=== PATIENT | female | born 1950 | race Caucasian/White ===

== ENCOUNTER 2016-08-30 10:00 | Inpatient (IN) | payer MEDICARE, OTHER ==
[~2016-08-30] VITALS: Ht 157.5 cm; Wt 73.8 kg
--- NOTE | ~2016-08-30 | DS ---
PATIENT'S NAME: CHARIS KUMAR [facility] AGE: 66 Y [address] ROOM: [place] [address] LOCATION: G3N ADMIT DATE: 09/13/2016 Discharge Summary DISCHARGE DATE: 09/15/2016 FAMILY PHYSICIAN: Chris Londono MD ATTENDING PHYSICIAN: Shukri Gutierrez PRIMARY DIAGNOSIS: Degenerative joint disease of the left knee. SECONDARY DIAGNOSES: 1. Hypertension. 2. Hyperlipidemia. 3. Osteopenia. 4. Peptic ulcer disease. 5. Vitamin D deficiency. PROCEDURE PERFORMED: Left total knee arthroplasty. HISTORY: The patient is a 66-year-old female, who presents with advanced left knee degenerative joint disease and associated severely compromised activities of daily living. The patient has decided to proceed with total knee arthroplasty after having been thoroughly counseled regarding the risks, benefits, limitations, and alternatives. Please refer to the outpatient clinic notes and admission history and physical for this patient. HOSPITAL COURSE: The patient underwent a left total knee arthroplasty on 09/13/2016 without complications. Spinal anesthesia plus adductor canal block plus periarticular local anesthesia was utilized. The patient received 24 hours of perioperative prophylactic antibiotics and remained hemodynamically stable, neurovascularly intact throughout the entire hospital course. The postoperative prophylactic deep venous thrombosis prophylaxis consisted of Xarelto, early mobilization and pneumatic compression devices. Daily physical therapy for gait training, transfer training range of motion and quadriceps isometric exercises were received. The patient progressed well in physical therapy. On the date of discharge, 09/15/2016, the incision at the knee was healing well and showed no signs of infection. DISPOSITION: Home. DISCHARGE ACTIVITY: The patient is to bear weight as tolerated with range of motion and quadriceps isometric exercises as instructed. The operative extremity is to be elevated at least 90% of the day. There is to be sterile 4x4 gauze dressings to the incision daily. Dr. Gutierrez is to be notified immediately if there is any increased pain, fevers, chills, erythema, or drainage. PATIENT'S NAME: CHARIS KUMAR [facility] AGE: 66 Y [address] ROOM: [place] [address] LOCATION: G3N ADMIT DATE: 09/13/2016 Discharge Summary DISCHARGE DATE: 09/15/2016 FAMILY PHYSICIAN: Chris Londono MD ATTENDING PHYSICIAN: Shukri Gutierrez DISCHARGE MEDICATIONS: 1. Xarelto 10 mg 1 tablet p.o. daily for 12 days for postoperative DVT prophylaxis. 2. Oxycodone 5 mg 1 to 2 tablets p.o. every 4 hours p.r.n. for pain. 3. Diazepam 5 mg 1/2 to 1 tablet p.o. every 6 hours p.r.n. for muscle spasms. 4. Gabapentin 300 mg 1 tablet p.o. every night at bedtime for 7 days for pain. She has been instructed to continue all her other preadmission medications as instructed by her internal medicine doctor. FOLLOWUP: Followup appointment is to be with Dr. Gutierrez's office on 09/20/2016 for her initial postoperative evaluation with x-rays of her left knee and suture removal at that time. DANTE CARROLL PA-C FOR MD PB MUNOZ/sally /[id number] d: 09/20/16 0549 t: 10/08/16 1202, DISCHARGE SUMMARY
--- NOTE | ~2016-08-30 | OR ---
PATIENT'S NAME: STAYC JOHNS [facility] AGE: 66 Y [address] ROOM: [place] [address] LOCATION: [facility] ADMIT DATE: 09/13/2016 OR/Procedure Report DISCHARGE DATE: FAMILY PHYSICIAN: Chris Londono MD ATTENDING PHYSICIAN: BAILEY MALIK SURGEON: Bailey Malik MD HUMAN RESOURCE MANAGEMENT INSTRUCTOR: Jose Card CST/METAL HANGING SUPERVISOR, and Bailey Landrum. DATE OF PROCEDURE: 09/13/2016 PRE-OP DIAGNOSIS: Degenerative joint disease left knee. POST-OP DIAGNOSIS: Degenerative joint disease left knee. OPERATION: Left total knee arthroplasty with computer navigation. ANESTHESIA: Spinal anesthesia plus adductor canal block plus periarticular local anesthesia (ropivacaine with epinephrine and Toradol). ESTIMATED BLOOD LOSS: Less than 20 mL. DRAIN: None. SPECIMEN: None. COMPLICATIONS: None. IMPLANT SYSTEM: [employer] Triathlon Size 3 left posterior stabilized femoral component. Size 2 universal modular tibial baseplate. 9 mm posterior stabilized size 2 X3 tibial polyethylene insert. 29 mm oval X3 patella component (triple pegged). INDICATIONS FOR SURGERY: Charis Kumar is a 66-year-old female who presents with advanced left knee degenerative joint disease and associated severely compromised activities of daily living. The patient has decided to proceed with knee replacement after having been thoroughly counseled regarding the associated risks, benefits, and limitations. We have specifically reviewed the risks and implications of infection, deep venous thrombosis, pulmonary embolism, mortality, neurovascular complications, blood transfusion (and associated potential for disease transmission or transfusion reaction), stiffness, instability, mechanical deterioration of the components (due to wear and or loosening), and the potential need for revision. We have also emphasized the importance of active involvement and compliance with post- operative physical therapy as a means of optimizing range of motion and PATIENT'S NAME: STACY JOHNS [facility] AGE: 66 Y [address] ROOM: [place] [address] LOCATION: [facility] ADMIT DATE: 09/13/2016 OR/Procedure Report DISCHARGE DATE: FAMILY PHYSICIAN: Chris Londono MD ATTENDING PHYSICIAN: BAILEY MALIK functional recovery. Informed consent has been granted. DESCRIPTION OF PROCEDURE: The patient was positioned supine after administration of anesthesia and prophylactic antibiotics. A well-padded pneumatic tourniquet was placed around the left proximal thigh, and the left lower extremity was prepped and draped with vigilant sterile technique. The patient's name as well as the intended operative side and procedure were confirmed with a verbal time-out involving myself, the circulating nurse, the scrub nurse, and the anesthesiologist. Examination under anesthesia demonstrated a large effusion. There were no active skin lesions or masses. There was no erythema. There was no abnormal warmth. Range of motion under anesthesia was from full extension to 135 degrees of flexion. There was no ligamentous insufficiency. The left lower extremity was elevated and exsanguinated with an Esmarch wrap, and the pneumatic tourniquet was inflated to 300mmHg. The knee was approached through a longitudinal midline incision. A medial parapatellar arthrotomy was performed and the patella was everted. Examination of the joint space demonstrated a large amount of benign-appearing translucent synovial fluid. There was mild generalized nonproliferative synovitis. There were no loose bodies. The cruciate ligaments were intact. There was a 1 cm diameter region of moderate grade 3 chondromalacia at the lateral facet of the patella. There was an 8 x 12 mm region of full-thickness articular cartilage loss at the medial half of the femoral trochlea. There was a small osteophyte at the medial margin of the femoral trochlea. There were small osteophytes at the medial femoral condyle and medial tibial plateau. There was a very small osteophyte at the lateral femoral condyle. There was intermixed grade 3 and grade 4 articular cartilage degeneration involving 80% of the medial femoral condyle. There was a 1 cm diameter region of full-thickness articular cartilage loss at the medial margin of the medial tibial plateau, and there was extensive surrounding grade 3 chondromalacia. There were grade 2 degenerative changes at the medial half of the lateral tibial plateau. There was no significant meniscal pathology. Remnants of the menisci and cruciate ligaments were excised. The Dot VN navigation femoral tracker was pinned in place at the distal aspect of the femoral trochlea. Absence of motion between the femur and the tracking device was confirmed manually and visually. Femoral osseous landmarks were obtained in order to calibrate the computer navigation system. Landmarks included the center of rotation of the ipsilateral hip, the center-point of the distal femur, the femoral AP axis, 57 points on the medial femoral condyle articular surface, and 57 points on the lateral femoral condyle articular surface. The ZettaCore computer navigation system was subsequently utilized PATIENT'S NAME: CHARIS [facility] AGE: 66 Y [address] ROOM: [id number] [place] [id number] LOCATION: [facility] ADMIT DATE: 09/13/2016 OR/Procedure Report DISCHARGE DATE: FAMILY PHYSICIAN: Chris Londono MD ATTENDING PHYSICIAN: BAILEY MALIK to position the distal femoral resection block such that the distal femoral resection was performed perfectly perpendicular to the femoral mechanical axis. The distal femoral resection was performed with a AptDeco oscillating saw. The ZettaCore computer navigation tibial tracker was pinned in place at the anterior aspect of the tibial plateau. Absence of motion between the tibia and the tracking device was confirmed manually and visually. Tibial osseous landmarks were obtained in order to calibrate the computer navigation system. Landmarks included the center-point of the tibial plateau, the AP tibial axis, 57 points on the medial tibial plateau articular surface, 57 points on the lateral tibial plateau articular surface, the medial malleolus, and the lateral malleolus. The ZettaCore computer navigation system was subsequently utilized to position the proximal tibial resection block such that the proximal tibial resection was performed perfectly perpendicular to the tibial mechanical axis. The proximal tibial resection was performed with a [employer] Precision oscillating saw. Perpendicularity of the tibial resection with respect to the tibial shaft axis was reconfirmed by inserting a spacer- block attached to an extramedullary guide sheridan. External rotation of the anterior and posterior femoral resections was set parallel to the epicondylar axis and carefully adjusted in order to create a rectangular flexion gap. The box resection was performed with a reciprocating saw. Anterior and posterior chamfer resections were performed with the oscillating saw. Posterior condyle osteophytes were excised with an osteotome. All other osteophytes were excised with a rongeur. Resection of all remnants of the menisci was reconfirmed. Flexion and extension gaps were confirmed to be symmetric and well balanced with a spacer-block technique. The patella resection was performed with an oscillating saw such that the composite thickness of the reconstructed patella was equivalent to the thickness of the [place] patella. Patella tracking was confirmed to be optimal. A lateral retinacular release was required in order to optimize patella tracking. All trial components were removed and all prepared osseous surfaces were thoroughly irrigated with pulsatile saline lavage and dried prior to cementing all three components in a single stage using Carmen Simplex cement containing pre-mixed tobramycin. All extruded excess cement was removed. The entire joint space was thoroughly inspected and thoroughly irrigated with bacteriostatic pulsatile saline lavage to assure that there was no residual debris of any sort. Final range of motion was from full extension (with no passive hyperextension) to 130 degrees of flexion. Patella tracking was reconfirmed to be optimal. PATIENT'S NAME: CHARIS KUMAR [facility] AGE: 66 Y [address] ROOM: [address] [address] LOCATION: [facility] ADMIT DATE: 09/13/2016 OR/Procedure Report DISCHARGE DATE: FAMILY PHYSICIAN: Chris Londono MD ATTENDING PHYSICIAN: BAILEY MALIK There was very good anteroposterior stability at 90 degrees of flexion. There was less than 1 mm of medial lift-off to valgus stress in full extension. There was less than 1 mm of lateral lift-off to varus stress in full extension. The arthrotomy was closed with multiple simple and [id number] interrupted #1 Vicryl. Subcutaneous tissues were thoroughly re-irrigated with bacteriostatic pulsatile saline lavage. Subcutaneous tissues were re- approximated with simple buried interrupted #0 Vicryl sutures. The skin was closed with simple buried interrupted 2-0 Vicryl sutures followed by surgical nara. The dressing consisted of Xeroform gauze, 4x4 gauze, ABD pads and two 6-inch Armen Wraps. There were no intra-operative complications. MD PAULIE MUNOZ/sally /[id number] d: 09/14/16 1325 t: 09/17/16 1006, OPERATIVE SUMMARY
[2016-08-30] MEDS ORDERED: CATAPRES0.1 MG PO (10:02)
[2016-08-30] MEDS ORDERED: ALLOPURINOL300 MG PO (10:02)
[2016-08-30] MEDS ORDERED: AMLODIPINE BESYL5 MG PO (10:02)
[2016-08-30] MEDS ORDERED: VOLTAREN 1% GE100 GM TOP (10:03)
[2016-08-30] MEDS ORDERED: PRILOSEC20 MG PO (10:04)
[2016-08-30] MEDS ORDERED: VALSARTAN-HCTZ1 EAC2 PO (10:04)
[2016-08-30] MEDS ORDERED: HYDROCHLOROTH12.5 MG PO (10:04)
[2016-08-30] MEDS ORDERED: OMEGA 3-6-9 11200 MG PO (10:09)
[2016-08-30] MEDS ORDERED: ONE A DAY WOME EAC PO (10:11)
[2016-09-01] MEDS ORDERED: CIPRO500 MG PO (11:41)
[2016-09-01] MEDS ORDERED: VITAMIN E400 UNI2 PO (11:49)
[2016-09-01] MEDS ORDERED: VITAMIN D-32000 UNIT PO (11:50)
[2016-09-15] MEDS ORDERED: TYLENOL EXTRA500 MG PO (12:55)
[2016-09-15] MEDS ORDERED: COLACE100 MG PO (12:58)
[2016-09-15] MEDS ORDERED: NEURONTIN300 MG PO (12:59)
[2016-09-15] MEDS ORDERED: MIRALAX17 GM PO (13:00)
[2016-09-15] MEDS ORDERED: XARELTO10 MG (13:01)
[2016-09-15] MEDS ORDERED: XARELTO10 MG PO (13:02)
[2016-09-15] MEDS ORDERED: VALIUM5 MG PO (13:03)
[2016-09-15] MEDS ORDERED: ROXICODONE 5MG (5 MG PO (13:05)
== END 2016-09-15 14:00 | disposition disaster alternative care site (69) | DRG 470 ==
LOC: G3N 09-13 06:56
PROVIDERS: ADMIT Orthopaedic Surgery
PROC: 0SRD0J9 Replacement of Left Knee Joint with Synthetic Substitute, Cemented, Open Approach (ICD-10-PCS; principal; 2016-09-13)
DX: M17.12 Unilateral primary osteoarthritis, left knee (principal); N39.0 Urinary tract infection, site not specified; I10 Essential (primary) hypertension; E55.9 Vitamin D deficiency, unspecified; G47.00 Insomnia, unspecified; M10.9 Gout, unspecified; M85.80 Other specified disorders of bone density and structure, unspecified site; R91.8 Other nonspecific abnormal finding of lung field; Z87.11 Personal history of peptic ulcer disease; Z88.0 Allergy status to penicillin; Z88.1 Allergy status to other antibiotic agents
CPT/HCPCS: A9270; C1713; C1751; C1776; J1100; J1170; J1885; J2001; J2250; J2405; J2795; J7120

== ENCOUNTER → 2016-09-01 | Outpatient (CLI) | payer MEDICARE, OTHER ==
[~2016-09-01] MED LIST: ALLOPURINOL300 MG PO; AMLODIPINE BESYL5 MG PO; CATAPRES0.1 MG PO; CIPRO500 MG PO; COLACE100 MG PO; HYDROCHLOROTH12.5 MG PO; MIRALAX17 GM PO; NEURONTIN300 MG PO; OMEGA 3-6-9 11200 MG PO; ONE A DAY WOME EAC PO; PRILOSEC20 MG PO; ROXICODONE 5MG (5 MG PO; TYLENOL EXTRA500 MG PO; VALIUM5 MG PO; VALSARTAN-HCTZ1 EAC2 PO; VITAMIN D-32000 UNIT PO; VITAMIN E400 UNI2 PO; VOLTAREN 1% GE100 GM TOP; XARELTO10 MG; XARELTO10 MG PO
== END | disposition disaster alternative care site (69) ==
LOC: GNJRC 10:34
DX: Z01.812 Encounter for preprocedural laboratory examination (principal); M17.12 Unilateral primary osteoarthritis, left knee